=== PATIENT | male | born 1980 | race American Indian/Alaskan Native ===

== ENCOUNTER 2018-12-28 21:47 | Emergency (ER) | payer OTHER ==
--- NOTE | 2018-12-28 22:12 | Emergency Department Report ---
Blank Doc - Documentation Documentation: This is a 38-year-old male that presents wth left knee pain and right hand pain. This initial assessment/diagnostic orders/clinical plan/treatment(s) is/are subject to change based on patient's health status, clinical progression and re- assessment by fellow clinical providers in the ED. Further treatment and workup at subsequent clinical providers discretion. Patient/guardians urged not to elope from the ED as their condition may be serious if not clinically assessed and managed. Initial orders include: 1- Patient sent to [facility] for further evaluation and treatment 2- xray
--- NOTE | 2018-12-29 00:09 | XRay Report ---
PROCEDURE: XR KNEE 3V LT HISTORY: knee pain FINDINGS: AP, lateral and oblique views of the left knee were acquired and demonstrate no fracture or malalignm ent of the left knee No joint effusion is seen. IMPRESSION: No fracture is seen in the left knee This document is electronically signed by Carlo Blunt MD., December 29 2018 12:07:53 AM ET
--- NOTE | 2018-12-29 00:10 | XRay Report ---
PROCEDURE: XR HAND 3+V RT HISTORY: right hand pain FINDINGS: PA, lateral and oblique views of the right hand were acquired and demonstrate no fracture or malalign ment of the right hand. No erosion is seen. IMPRESSION: No fracture is seen in the right hand This document is electronically signed by Carlo Blunt MD., December 29 2018 12:08:47 AM ET
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
[2018-12-29 05:30] VITALS: BP 124/85
== END 2018-12-29 05:30 | disposition home or self-care (01) ==
LOC: ED 21:47
DX: S80.02XA Contusion of left knee, initial encounter (principal); M79.641 Pain in right hand; V89.2XXA Person injured in unspecified motor-vehicle accident, traffic, initial encounter; Y93.89 Activity, other specified; Y92.488 Other paved roadways as the place of occurrence of the external cause; Y99.8 Other external cause status
CPT/HCPCS: 99283